=== PATIENT | male | born 1960 | race Caucasian/White ===

== ENCOUNTER → 2016-05-15 | Outpatient (CLI) | payer SELFPAY ==
[2016-05-15 11:36] LABS: HEMATOCRIT 46.8 % (42.0-52.0); HEMOGLOBIN 15.7 g/dL (14.0-18.0); MEAN CORPUSCULAR HEMOGLOBIN 32.5 PG (27-31); MEAN CORPUSCULAR HGB CONC 33.5 g/dL (33-37); MEAN CORPUSCULAR VOLUME 96.9 FL (80-90); MEAN PLATELET VOLUME 9.9 FL (7.4-12.2); RED BLOOD COUNT 4.83 10^6/uL (4.70-6.10)
[2016-05-15 11:48] LABS: BLOOD UREA NITROGEN 18 mg/dL (7-22); CALCIUM 9.4 mg/dL (8.7-10.7); EST GLOMERULAR FILTRATION > 60 (>60 ml/min/1.73m(2)); SERUM ALBUMIN 4.4 g/dL (3.5-4.8)
--- NOTE | 2016-05-15 12:29 | DI ---
XR L-SPINE 2-3 VW,05/15/2016 11:32 AM: Clinical History: Acute midline low back pain without sciatica. Previous Exam: None at this facility. Findings: AP and lateral views of the lumbar spine are obtained, and demonstrate anatomic alignment without fra ctures. Vertebral body height is preserved. A nonobstructive bowel gas pattern is seen. There is moderate stool throughout the colon. There is no evidence of pathologic calcification. Impression: Normal lumbar spine.
--- NOTE | 2016-05-15 12:29 | DI ---
XR HIP COMPLETE MIN 2VW U/L,05/15/2016 11:32 AM: Clinical History: Left hip pain Previous Exam: None at this facility. Findings: AP and frog-leg views of the left hip are obtained, and demonstrate anatomic alignment without fractu res. There is moderate stool noted throughout the colon. There are postsurgical changes noted within the right deep pelvis. There are some mild cystic changes of the superior lateral margin of the acetabulum with some increas ed new bone formation at the head neck junction of the proximal femur. Impression: The findings are most consistent with underlying impingement. Correlate with physical examination.
[2016-05-15 12:59] LABS: FREE T4 (FREE THYROXINE) 0.96 ng/dL (0.93-1.71)
== END ==
LOC: RAD 11:20
PROVIDERS: ATTEND Family Medicine
DX: R55 Syncope and collapse (principal); M54.5 Low back pain; M25.552 Pain in left hip; F17.210 Nicotine dependence, cigarettes, uncomplicated
CPT/HCPCS: 36415; 72100; 73502; 80053; 84439; 84443; 85027

== ENCOUNTER → 2016-05-21 | Outpatient (CLI) | payer SELFPAY ==
--- NOTE | 2016-05-23 14:53 | HOLTER ---
[facility] Interpretive Statements Patient stated waking up sterval times in the night with night sweats. Forty eight hour holter done for chest pain and lightheaded episodes. There were [id number] beats recorded with [id number] normal beats. The average sinus rate was 63 with the fastest rate of 112 and slowest rate of 44. There were 14 PACs, mostly singlets, and 1 VPC. No runs of SVT or VT were seen and no prolonged pauses were present. Non-diagnostic ST depression was seen with sinus tachycardia with no chest pain symptoms and no ST depression note with chest pain. The patient recorded multiple episodes of lightheadedness while standing at bedside, or changing position with occasional chest pain with no associated arrthymia or pauses. Most symptoms appeared to be positional. Imp: Normal holter study with no correlation of arrthymia with symptoms. The patient did have associated chest pain without diagnostic ST changes but did have some non-diagnostic ST depression with faster heart rates. Would consider stress test due to symptoms. Electronically Signed On 05-25-16 12:50:58 MDT by Ramez Boateng [id number]
== END ==
LOC: EKG 11:08
PROVIDERS: ATTEND Family Medicine
DX: R55 Syncope and collapse (principal); R07.9 Chest pain, unspecified
CPT/HCPCS: 93225; 93226; 93227

== ENCOUNTER → 2016-05-21 | Outpatient (CLI) | payer SELFPAY ==
[2016-05-21 12:26] LABS: BILIRUBIN,URINE NEGATIVE (NEG); COLOR,URINE YELLOW; GLUCOSE, URINE (UA) NEGATIVE (NEG); NITRATE,URINE NEGATIVE (NEG); OCCULT BLOOD,URINE NEGATIVE (NEG); PROTEIN,URINE NEGATIVE (NEG); UROBILINOGEN,URINE 0.2 EU/dL (0.2)
[2016-05-21 12:29] LABS: CLARITY,URINE CLEAR (CLEAR)
[2016-05-21 12:30] LABS: URINE SAMPLE TYPE VOIDED SPECIMEN
== END ==
LOC: MOB LAB 10:53
PROVIDERS: ATTEND Family Medicine
DX: R31.29 Other microscopic hematuria (principal)
CPT/HCPCS: 81003

== ENCOUNTER → 2016-05-26 | Outpatient (CLI) | payer OTHER ==
--- NOTE | 2016-05-26 11:57 | DI ---
DUPLEX COLOR DOPPLER CAROTID ULTRASOUND, 05/26/2016 10:08 AM: Clinical History: Near syncope. Previous Exam: None at this facility. Technique: 2D real time imaging is supplemented with duplex color doppler ultrasound imaging. RIGHT CAROTID ARTERY: 2D real time imaging of the right carotid system shows a normal appearance of the right common caroti d artery. The carotid bulb has a noncalcified plaque posteriorly. Noncalcified plaque is present at t he origin of the external carotid artery. Peak systolic velocities through the right common carotid, the external carotid, and the internal carotid are 123 cm/s, 96 cm/s, and 76 cm/s, respectively. All values correspond to diameter stenoses of 0-49%. LEFT CAROTID ARTERY: 2D real time imaging of the left carotid system shows a normal appearance of the common carotid arter y. There is a small calcified plaque in the anterior portion of the carotid bulb with noncalcified pl aque posteriorly. The internal and external carotid arteries are normal. Peak systolic velocities thr ough the left common carotid, the external carotid, and the internal carotid are 142 cm/s, 111 cm/s, and 97 cm/s, respectively. The values for the external and internal carotid arteries correspond to di ameter stenoses of 0-49%. The value for the left common carotid artery corresponds to a diameter sten osis of 50-74%. VERTEBRAL ARTERIES: There is antegrade flow through both vertebral arteries Cardiac rhythm is regular. During some of the scans, the patient did have a sinus bradycardia. Peak systolic velocities through the visualized por tions of the right and left vertebral arteries are 54 cm/s and 65 cm/s, respectively. These values co rrespond to diameter stenoses of 0-49%. Readin. There is no hemodynamically significant stenosis of either carotid system. 2. There is antegrade flow through both vertebral arteries. Cardiac rhythm is regular but there are episodes of sinus bradycardia noted during this exam.
== END ==
LOC: US 10:00
PROVIDERS: ATTEND Family Medicine
DX: R55 Syncope and collapse (principal); R00.1 Bradycardia, unspecified
CPT/HCPCS: 93880

== ENCOUNTER → 2016-06-18 | Outpatient (CLI) | payer OTHER ==
--- NOTE | 2016-06-18 09:02 | STRESSTEST ---
[facility] Interpretive Statements This 55 y.o. male is referred by Dr. Pinedo for stress after Holter was without correlation to diary of dizzy spells and Carotid dopplers showed 50 to 70% common carotid lesion and sinus bradycardia during exam. Risk factors include 3 months off tobacco (while incarcerated) and no diabetes, no hypertension, no known lipid risk, and no known family history. Resting ECG was WNL. He was able to reach 95% PMHR with 9.6 METs and DP=28.2K without significant ST depression or ectopy. There was no wheezing or hypoxia and no murmur after exercise. IMPRESSION: Low risk maximal ETT without cause for spells. PLAN: He will keep diary of timing, reliever factors and associations for review. Consider BPV. [id number]
== END ==
LOC: EKG 08:05
PROVIDERS: ATTEND Family Medicine
DX: R55 Syncope and collapse (principal); R07.9 Chest pain, unspecified
CPT/HCPCS: 93016; 93017; 93018

== ENCOUNTER → 2016-08-27 | Outpatient (CLI) | payer OTHER ==
--- NOTE | 2016-08-27 22:53 | DI ---
MRI LUMBAR SPINE SCAN WITHOUT IV CONTRAST, 08/27/2016 12:45 PM: Clinical History: Acute midline low back pain without sciatica. Previous Exam: None. Technique: Sagittal and axial T2 weighted; sagittal T1 weighted and T2 STIR; and axial PD. The vertebral bodies are of normal height and size. There is a Schmorl's node with superior endplate invagination at L4. There is moderate L5-S1 disc space narrowing in the remaining disc spaces are of normal height. Moderate desiccation changes present at L3-4 and L4-5 with more severe desiccation josiane nge at L5-S1. The cord terminates at T12 and the conus medullaris is normal. The T11-12 through L2-3 disc spaces are normal. L3-4 has a very minimal bulging but not herniated disc without canal or neura l foraminal stenosis. L4-5 also has a bulging but not herniated disc without canal or neural foramina l stenosis. There is a tear in the disc annulus laterally on the left side. L5-S1 has a focal central disc herniation with a midline disc annulus tear. There is loss of the epidural fat on the right cecille e and this disc fragment may potentially cause impingement on the right S1 nerve root as it passes th rough the lateral recess of S1. There is no canal or neural foraminal stenosis. Readin. There is a central focal disc herniation that may potentially cause impingement on the right S1 n erve root at the level of the lateral recess of S1. There is no canal or neural foraminal stenosis. A midline disc annulus tear is present. 2. There are bulging but not herniated discs without canal or neural foraminal stenosis at L3-4 and L4-5. There is a left lateral disc annulus tear at L4-5. 3. The disc spaces from T11-12 through L2-3 are normal.
--- NOTE | 2016-08-28 13:12 | DI ---
MRI LEFT HIP SCAN, 08/27/2016 12:45 PM: Clinical History: Left hip pain. Previous Exam: None at this facility. Technique: Axial fat saturated T2 weighted and oblique axial PD; coronal and sagittal PD and fat satu rated PD; anterior oblique coronal fat saturated PD. No intra-articular contrast or local anesthetic were used. There is no soft tissue edema or abnormal bone signal pattern. Mild bony acetabular over coverage is present along the superior lateral margin of the acetabulum. There is no dysplastic "bump" involving the femoral neck. The alpha angle measures 48 degrees. There is a small joint effusion barely greater than a physiologic amount. There is a tear of the labrum beginning near the 12:00 position and this extends anteriorly into the anterosuperior quadrant and terminates just before the equator. A small s econd labral tear is present in the inferior aspect of the anteroinferior quadrant terminating just a nterior to the 6:00 position. The ligamentum teres and remaining ligamentous structures are intact. T he cartilaginous surfaces of the acetabulum and femoral head are also intact. Readin. There is bony acetabular over coverage producing femoroacetabular impingement primarily of the pi ncer type with a labral tear extending from the 12:00 position almost to the equator in the anterosup erior quadrant. A second smaller tear is present in the anteroinferior quadrant in the lower portion and extending close to the 6:00 position. A small joint effusion is noted. 2. There is no dysplastic "bump". The alpha angle is 48 degrees. No ligamentous or cartilaginous abn ormalities are noted.
== END ==
LOC: MRI 12:39
PROVIDERS: ATTEND Family Medicine
DX: M54.5 Low back pain (principal); M25.552 Pain in left hip; M25.852 Other specified joint disorders, left hip; S73.192A Other sprain of left hip, initial encounter; M53.3 Sacrococcygeal disorders, not elsewhere classified; M47.816 Spondylosis without myelopathy or radiculopathy, lumbar region
CPT/HCPCS: 72148; 73721